=== PATIENT | female | born 1970 | race Asian ===

== ENCOUNTER 2022-03-05 23:03 | Emergency (ER) | payer OTHER ==
[~2022-03-05] VITALS: Ht 157.5 cm; Wt 63.6 kg
[2022-03-06 00:03] LABS: BASOPHILS % (AUTO) 0.9 % (0.0-2.0); EOSINOPHILS % (AUTO) 5.2 % (1.0-6.0); HEMOGLOBIN 14.9 g/dL (12.0-16.0); LYMPHOCYTES # (AUTO) 1.8 K/uL (1.0-4.8); LYMPHOCYTES % (AUTO) 27.1 % (22.0-44.0); MEAN CORPUSCULAR HEMOGLOBIN 29.4 pg (26.0-34.0); MEAN CORPUSCULAR HGB CONC 33.8 G/dL (31.0-37.0); MEAN CORPUSCULAR VOLUME 87 fL (80-100); MONOCYTES # (AUTO) 0.6 K/uL (0.1-1.0); MONOCYTES % (AUTO) 8.9 % (2.0-9.0); NEUTROPHILS # (AUTO) 3.9 K/uL (1.8-7.7); NEUTROPHILS % (AUTO) 57.9 % (40.0-70.0); PLATELET COUNT (AUTO) 266 K/uL (150-450); RED BLOOD CELL COUNT(AUTO) 5.05 MIL/uL (4.00-5.20); RED CELL DISTRIBUTION WIDTH 13.7 % (11.5-14.5)
[2022-03-06 00:18] LABS: ALANINE AMINOTRANSFERASE 46 U/L (12-78); ALBUMIN 3.4 g/dL (3.4-5.0); ALKALINE PHOSPHATASE 113 U/L (46-116); ANION GAP 8 mmol/L (8-16); ASPARTATE AMINOTRANSFERASE 39 U/L (15-37); BILIRUBIN,TOTAL 0.2 mg/dL (0.1-1.0); CALCIUM, TOTAL 8.6 mg/dL (8.8-10.5); CARBON DIOXIDE 30 mmol/L (22-29); CHLORIDE 104 mmol/L (98-107); CREATININE 0.73 mg/dL (0.60-1.30); GLOMERULAR FILTR. RATE CALC > 60 mL/min (>60); GLUCOSE,RANDOM 103 mg/dL (70-110); POTASSIUM 4.5 mmol/L (3.5-5.1); SODIUM SERUM 142 mmol/L (136-145); TOTAL PROTEIN, SERUM 7.3 g/dL (6.4-8.2); UREA NITROGEN, BLOOD 15 mg/dL (7-18)
[2022-03-06 00:24] LABS: B-TYPE NATRIURETIC PEPTIDE 16 pg/mL (0-100)
[2022-03-06 03:00] VITALS: BP 129/71
== END 2022-03-06 03:00 | disposition home or self-care (01) ==
LOC: EMS 23:04
DX: R07.89 Other chest pain (principal); L40.9 Psoriasis, unspecified
CPT/HCPCS: 71045; 80053; 83880; 84484; 85025; 93005; 99285; 36415-L1; 36415-TC

== ENCOUNTER 2023-06-26 03:15 | Emergency (ER) | payer OTHER ==
[~2023-06-26] VITALS: Ht 160 cm; Wt 63.6 kg
[2023-06-26 03:40] VITALS: TEMP 98.3
[2023-06-26] MEDS ORDERED: DiphenhydrAMINE HCL 50 MG/ML VIAL IVP ONE (03:45)
[2023-06-26] MEDS ORDERED: METOCLOPRAMIDE HCL 5 MG/ML 2 ML VIAL IVP ONE (03:45)
[2023-06-26] MEDS ORDERED: SODIUM CHLORIDE 0.9% 1,000 ML IV ONE (03:45)
[2023-06-26] MEDS ORDERED: KETOROLAC TROMETHAMINE 30 MG/ML VIAL IVP ONE (03:45)
[2023-06-26] MEDS ORDERED: IBUPROFEN 600 MG TABLET PO ONE (04:00)
[2023-06-26 04:48] VITALS: BP 117/73; PULSE 69; RESP 19
== END 2023-06-26 05:00 | disposition home or self-care (01) ==
LOC: EMS 03:17
DX: R51.9 Headache, unspecified (principal); E78.00 Pure hypercholesterolemia, unspecified
CPT/HCPCS: 99284; 70450; J1200; J1885; J2765; J7030